=== PATIENT | female | born 1955 ===

== ENCOUNTER 2022-10-12 06:00 | Day surgery (SDC) | payer OTHER | END 2022-10-12 11:00 | disposition home or self-care (01) | LOC: AMB-ENDOS 06:00 | PROVIDERS: ATTEND Colon & Rectal Surgery | DX: D12.3 Benign neoplasm of transverse colon (principal); D12.2 Benign neoplasm of ascending colon; K57.30 Diverticulosis of large intestine without perforation or abscess without bleeding; R19.4 Change in bowel habit; Z20.822 Contact with and (suspected) exposure to COVID-19; K64.8 Other hemorrhoids; Z88.6 Allergy status to analgesic agent ==